=== PATIENT | female | born 2000 | race Caucasian/White ===

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

== ENCOUNTER 2021-12-14 05:44 | Inpatient (IN) ==
[2021-12-14] MEDS ORDERED: ACETAMINOPHEN 325 MG TABLET PO PRN ×2 (05:54→21:17)
[2021-12-14] MEDS ORDERED: METHYLERGONOVINE 0.2 MG/1 ML AMP IM PRN (05:54)
[2021-12-14] MEDS ORDERED: BUTORPHANOL 2 MG/ML VIAL IV PRN (05:54)
[2021-12-14] MEDS ORDERED: OXYTOCIN/LR 20 UNIT/1,000 ML BAG IV ONE ×2 (05:54→21:17)
[2021-12-14] MEDS ORDERED: CARBOPROST TROMETHAMINE 250 MCG/ML AMP IM PRN (05:54)
[2021-12-14] MEDS ORDERED: MEPERIDINE 50 MG/1 ML VIAL IV PRN ×2 (05:54→06:06)
[2021-12-14] MEDS ORDERED: LACTATED RINGERS 250 ML IV ONE (05:54)
[2021-12-14] MEDS ORDERED: TRANEXAMIC ACID 1,000 MG in SODIUM CHLORIDE 0.9% 100 ML IV PRN (05:54)
[2021-12-14] MEDS ORDERED: BUTORPHANOL 1 MG/ML VIAL IV PRN (05:54)
[2021-12-14] MEDS ORDERED: LIDOCAINE 1% 50 ML VIAL MISC INJ ONE (05:54)
[2021-12-14] MEDS ORDERED: miSOPROStoL 200 MCG TABLET RECTAL PRN (05:54)
[2021-12-14] MEDS ORDERED: LACTATED RINGERS 500 ML IV PRN (05:54)
[2021-12-14] MEDS ORDERED: ONDANSETRON 4 MG/2 ML VIAL IV PRN ×2 (05:54→21:17)
[2021-12-14] MEDS: LACTATED RINGERS 1,000 ML IV SCH ×2 (06:24→10:34)
[2021-12-14] MEDS: OXYTOCIN/LR 20 UNIT/1,000 ML BAG IV SCH ×2 (06:34→17:00)
[2021-12-14 07:00] LABS: Basophils % 0.2 % (0.0-0.8); Eosinophils # 0.1 10*3/uL (0.0-0.87); Eosinophils % 0.9 % (0.00-10.9); Hematocrit 32.4 VOL% (35.7-47.0); Hemoglobin 11.3 GM/DL (12.0-16.0); Immature Granulocytes % 0.7 %; Immature Granulocytes Absolute 0.11 #; Lymphocytes # 1.3 10*3/uL (1.4-4.0); Lymphocytes % 8.3 % (21.3-54.2); Mean Corpuscular HGB Conc 34.9 GM/DL (32-36); Mean Platelet Volume 9.9 FL (9.6-12.0); Monocytes # 0.9 10*3/uL (0.11-0.8); Monocytes % 5.7 % (1.7-12.7); Neutrophils % 84.2 % (38.7-73.9); Platelet Count 238 T/CUMM (130-400); Red Blood Count 3.56 MC/CUMM (3.8-5.5); Red Cell Distribution Width 13.1 % (9.3-17.3); White Blood Count 15.7 T/CUMM (4-12)
[2021-12-14] MEDS ORDERED: FAMOTIDINE 20 MG/2 ML VIAL IV ONE (09:07)
[2021-12-14] MEDS ORDERED: hydrOXYzine HCL 25 MG/1 ML VIAL IM PRN (09:07)
[2021-12-14] MEDS ORDERED: diphenhydrAMINE 50 MG/1 ML VIAL IV PRN ×2 (09:07)
[2021-12-14] MEDS ORDERED: NALOXONE 0.4 MG/ML VIAL IV PRN (09:07)
[2021-12-14] MEDS ORDERED: PROMETHAZINE 25 MG/1 ML VIAL IM ONE (09:07)
[2021-12-14] MEDS ORDERED: CITRIC ACID/SODIUM CITRATE 30 ML UDCUP PO ONE (09:07)
[2021-12-14] MEDS ORDERED: ePHEDrine 50 MG/ML VIAL IV PRN (09:07)
[2021-12-14] MEDS ORDERED: ONDANSETRON 4 MG/2 ML VIAL IV ONE (09:07)
[2021-12-14] MEDS ORDERED: fentaNYL 2 MCG/ROPIV 0.2% EPID 100 ML EPIDURAL SCH (09:30)
[2021-12-14 10:57] LABS: Bilirubin,Urine Negative (Negative); Blood, Urine Negative (Negative); Glucose,Urine (UA) Negative (Negative); Ketones,Urine Negative (Negative); Mucus,Urine Occasional /LPF (Occasional); Nitrite,Urine Negative (Negative); Protein,Urine Negative (Negative); Urine Appearance Clear (Clear); Urine Color Yellow (Yellow); Urine Specific Gravity 1.015 (1.001-1.035); Urine Urobilinogen 0.2 eU/dL (<2.0)
[2021-12-14] MEDS ORDERED: TRANEXAMIC ACID 1,000 MG/10 ML VIAL ONE (15:23)
[2021-12-14] MEDS ORDERED: miSOPROStoL 200 MCG TABLET ONE (15:23)
[2021-12-14] MEDS ORDERED: SODIUM CHLORIDE 0.9% 0 ML IV ONE (15:23)
[2021-12-14] MEDS ORDERED: METHYLERGONOVINE 0.2 MG/1 ML AMP ONE (15:23)
[2021-12-14] MEDS ORDERED: CARBOPROST TROMETHAMINE 250 MCG/ML AMP IM ONE (15:23)
[2021-12-14 16:26] LABS: Cord Venous Blood HCO3 24.1 MMOL/L; Cord Venous Blood PCO2 35.8 MMHG; Cord Venous Blood PO2 31.9
[2021-12-14] MEDS ORDERED: BENZOCAINE 20%/MENTHOL 0.5% SPRAY 56 GM CAN TOP PRN (21:17)
[2021-12-14] MEDS ORDERED: BISACODYL 10 MG SUPP RECTAL PRN (21:17)
[2021-12-14] MEDS ORDERED: LANOLIN 50% CREAM 0.3 OZ TUBE TOP PRN (21:17)
[2021-12-14] MEDS ORDERED: WITCH HAZEL PADS 100/JAR TOP PRN (21:17)
[2021-12-14] MEDS ORDERED: HYDROCORTISONE 2.5% RECTAL CREAM 30 GM TUBE TOP PRN (21:17)
[2021-12-14] MEDS ORDERED: oxyCODONE/ACETAMINOPHEN 5-325 MG TABLET PO PRN (21:17)
[2021-12-14] MEDS: IBUPROFEN 800 MG TABLET PO PRN (21:41)
[2021-12-14] MEDS ORDERED: DIPH/TET/ACEL PERT BOOSTER VACCINE 0.5 ML VIAL IM ONE (22:00)
[2021-12-14] MEDS ORDERED: RHO(D) IMMUNE GLOBULIN 300 MCG SYRINGE IM ONE (22:00)
[2021-12-14] MEDS ORDERED: MEASLES/MUMPS/RUBELLA VACCINE 0.5 ML VIAL SUBCUT ONE (22:00)
[2021-12-15 06:25] LABS: Basophils % 0.3 % (0.0-0.8); Eosinophils # 0.2 10*3/uL (0.0-0.87); Eosinophils % 1.4 % (0.00-10.9); Hematocrit 32.6 VOL% (35.7-47.0); Hemoglobin 11.1 GM/DL (12.0-16.0); Immature Granulocytes % 0.7 %; Immature Granulocytes Absolute 0.09 #; Lymphocytes # 1.8 10*3/uL (1.4-4.0); Lymphocytes % 14.5 % (21.3-54.2); Mean Corpuscular Volume 92.4 FL (87-102); Mean Platelet Volume 10.6 FL (9.6-12.0); Monocytes # 0.8 10*3/uL (0.11-0.8); Monocytes % 6.7 % (1.7-12.7); Neutrophils % 76.4 % (38.7-73.9); Platelet Count 223 T/CUMM (130-400); Red Blood Count 3.53 MC/CUMM (3.8-5.5); Red Cell Distribution Width 13.2 % (9.3-17.3); White Blood Count 12.6 T/CUMM (4-12)
[2021-12-15] MEDS: DOCUSATE SODIUM 100 MG CAPSULE PO SCH ×3 (07:31→20:57)
[2021-12-15] MEDS: oxyCODONE/ACETAMINOPHEN 5-325 MG TABLET PO PRN (08:17)
[2021-12-15] MEDS: IBUPROFEN 800 MG TABLET PO PRN (16:17)
[2021-12-16] MEDS: IBUPROFEN 800 MG TABLET PO PRN (08:25)
[2021-12-16] MEDS: oxyCODONE/ACETAMINOPHEN 5-325 MG TABLET PO PRN (08:25)
[2021-12-16] MEDS: DOCUSATE SODIUM 100 MG CAPSULE PO SCH (08:26)
[2021-12-16 09:00] VITALS: BP 141/82
== END 2021-12-16 13:00 | disposition home or self-care (01) | DRG 807 ==
LOC: N.LDOUT 05:44 → N.LD 05:46 → N.OB 20:55
PROVIDERS: ADMIT Specialist; ATTEND Specialist